=== PATIENT | male | born 1965 | race African-American/Black ===

== ENCOUNTER 2022-02-20 20:20 | Emergency (ER) | payer MEDICAID ==
[~2022-02-20] VITALS: Ht 182.9 cm; Wt 90.0 kg
[~2022-02-20 20:20] MED LIST: AMLO10TA80 PO; DIVA-18 PO; HYDR25TA; LISI10TA26 PO; SPIR25TA6
[2022-02-21] MEDS ORDERED: HYDROCHLOROTHIAZIDE 25MG TABLET PO ONE (03:00)
[2022-02-21 04:08] VITALS: BP 180/94
== END 2022-02-21 05:00 | disposition home or self-care (01) ==
LOC: ER 20:20
DX: F10.229 Alcohol dependence with intoxication, unspecified (principal); I10 Essential (primary) hypertension; Y90.9 Presence of alcohol in blood, level not specified; Z79.01 Long term (current) use of anticoagulants; Z88.1 Allergy status to other antibiotic agents
CPT/HCPCS: 99283